=== PATIENT | female | born 1965 | race Two or more races ===

== ENCOUNTER 2023-12-16 22:37 | Inpatient (IN) | payer MEDICAID, OTHER ==
[~2023-12-16] VITALS: Ht 157.5 cm; Wt 78.5 kg
[2023-12-16] MEDS ORDERED: DILTIAZEM HCL 25 MG IV ONE ×2 (22:53→23:30)
[2023-12-16] MEDS: DILTIAZEM HCL 50 MG IV IV ONE (23:01)
[2023-12-16 23:19] LABS: BASOPHILS # (AUTO) 0.1 K/uL (0.0-0.2); BASOPHILS % (AUTO) 0.5 % (0.0-2.0); EOSINOPHILS # (AUTO) 0.2 K/uL (0.0-0.7); EOSINOPHILS % (AUTO) 1.9 % (0.0-6.0); HEMATOCRIT 38 % (33-45); HEMOGLOBIN 12.7 g/dL (11.5-14.8); LYMPHOCYTES # (AUTO) 4.2 K/uL (0.8-4.8); LYMPHOCYTES % (AUTO) 37.4 % (20.0-44.0); MEAN CORPUSCULAR HEMOGLOBIN 28 PG (26.0-33.0); MEAN CORPUSCULAR HGB CONC 33 g/dl (31.0-36.0); MEAN CORPUSCULAR VOLUME 86 fL (82-100); MONOCYTES # (AUTO) 0.8 K/uL (0.1-1.30); MONOCYTES % (AUTO) 7.1 % (2.0-12.0); NEUTROPHILS % (AUTO) 53.1 % (43.0-81.0); PLATELET COUNT (AUTO) 378 K/uL (150-450); RED BLOOD CELL COUNT(AUTO) 4.48 MIL/uL (4.0-5.2); WHITE BLOOD COUNT (AUTO) 11.3 K/uL (4.3-11.0)
[2023-12-16] MEDS ORDERED: DILTIAZEM HCL 50 MG IV ONE (23:30)
[2023-12-16 23:36] LABS: CALCIUM, SERUM 9.7 mg/dL (8.5-10.1); CREATININE 0.6 mg/dL (0.6-1.3); POTASSIUM 3.1 mmol/L (3.5-5.1)
[2023-12-16] MEDS: DILTIAZEM HCL IV 125 MG in IV NS 0.9% 100 ML IV PRN (23:40)
[2023-12-16 23:51] LABS: ALBUMIN 3.8 g/dL (3.4-5.0); BILIRUBIN,TOTAL 0.2 mg/dL (0.2-1.0); MAGNESIUM 2.2 mg/dL (1.8-2.4); TOTAL PROTEIN, SERUM 8.1 g/dL (6.4-8.2)
[2023-12-17] MEDS ORDERED: POTASSIUM CHLORIDE 20 MEQ TAB.PRT.SR PO ONE (00:15)
[2023-12-17] MEDS: POTASSIUM CHLORIDE 20 MEQ TAB.PRT.SR PO ONE ×2 (00:21→13:54)
[2023-12-17] MEDS ORDERED: AMIODARONE 150 MG/3 ML VIAL IV ONE (01:22)
[2023-12-17] MEDS: AMIODARONE 150 MG/3 ML VIAL IV ONE ×2 (01:30→02:00)
[2023-12-17] MEDS: AMIODARONE 450 MG in IV D5W 241 ML IV ONE (02:00)
[2023-12-17] MEDS ORDERED: OMEP20CA15 PO (05:21)
[2023-12-17] MEDS ORDERED: PANTOPRAZOLE 40 MG TABLET.DR PO ONE (05:27)
[2023-12-17 06:33] LABS: BASOPHILS % (AUTO) 0.4 % (0.0-2.0); EOSINOPHILS # (AUTO) 0.2 K/uL (0.0-0.7); EOSINOPHILS % (AUTO) 1.9 % (0.0-6.0); HEMATOCRIT 38 % (33-45); HEMOGLOBIN 12.6 g/dL (11.5-14.8); LYMPHOCYTES # (AUTO) 3.2 K/uL (0.8-4.8); LYMPHOCYTES % (AUTO) 36.9 % (20.0-44.0); MEAN CORPUSCULAR HEMOGLOBIN 29 PG (26.0-33.0); MEAN CORPUSCULAR HGB CONC 33 g/dl (31.0-36.0); MEAN CORPUSCULAR VOLUME 86 fL (82-100); MONOCYTES # (AUTO) 0.6 K/uL (0.1-1.30); MONOCYTES % (AUTO) 7.3 % (2.0-12.0); NEUTROPHILS # (AUTO) 4.7 K/uL (1.8-8.9); NEUTROPHILS % (AUTO) 53.5 % (43.0-81.0); PLATELET COUNT (AUTO) 365 K/uL (150-450); RED BLOOD CELL COUNT(AUTO) 4.42 MIL/uL (4.0-5.2); RED CELL DISTRIBUTION WIDTH 14.1 % (11.5-15.0); WHITE BLOOD COUNT (AUTO) 8.7 K/uL (4.3-11.0)
[2023-12-17 06:39] LABS: CREATININE 0.6 mg/dL (0.6-1.3); POTASSIUM 3.7 mmol/L (3.5-5.1)
[2023-12-17 06:55] LABS: THYROID STIMULATING HORMONE 1.49 uIU/mL (0.358-3.74)
[2023-12-17] MEDS: AMIODARONE 450 MG in IV D5W 241 ML IV PRN (08:28)
[2023-12-17] MEDS: PANTOPRAZOLE 40 MG TABLET.DR PO ONE (09:46)
[2023-12-17 10:00] VITALS: BP 121/66; TEMP 97.7; O2SAT 96
[2023-12-17 13:09] VITALS: BP 114/77; TEMP 98.4; O2SAT 94
[2023-12-17] MEDS: METOPROLOL TARTRATE 25 MG TABLET PO SCH (13:55)
[2023-12-17 16:00] VITALS: BP 129/79; TEMP 98.4; O2SAT 100
[2023-12-17 20:00] VITALS: BP 107/64; TEMP 97.7; O2SAT 100
[2023-12-18] VITALS: BP 109/62; TEMP 97.9; O2SAT 99
[2023-12-18 04:00] VITALS: BP 120/82; TEMP 97.9; O2SAT 99
[2023-12-18 09:20] VITALS: BP 110/62; TEMP 97.9; O2SAT 100
[2023-12-18] MEDS ORDERED: IV NS 0.9% 250 ML IV ONE (11:04)
[2023-12-18] MEDS ORDERED: IOHEXOL-350 100 ML VIAL IV ONE (11:04)
[2023-12-18] MEDS ORDERED: METOPROLOL TARTRATE INJ 5 MG/5 ML AMPUL ONE ×2 (11:04→11:29)
[2023-12-18] MEDS ORDERED: NITROGLYCERIN 0.4 MG/TAB BOTTLE ONE (11:04)
[2023-12-18] MEDS ORDERED: CT SWABBABLE VALVE TRANS SET 1 EA INFUS.SET MC ONE (11:04)
[2023-12-18] MEDS: METOPROLOL TARTRATE INJ 5 MG/5 ML AMPUL IVP PRN (11:20)
[2023-12-18] MEDS: NITROGLYCERIN 0.4 MG/TAB BOTTLE SL ONE (11:28)
[2023-12-18 12:00] VITALS: BP 105/74; TEMP 97.5; O2SAT 100
[2023-12-18 16:00] VITALS: BP 96/65; TEMP 97.5; O2SAT 100
[2023-12-18] MEDS ORDERED: METO25TA20 PO (16:35)
== END 2023-12-18 17:00 | disposition home or self-care (01) | DRG 201 ==
LOC: ER 22:39 → TRANSITION 12-17 06:05 → TELE1 12-17 06:39 → TELE-TD 12-17 09:18
PROVIDERS: ADMIT Internal Medicine; ATTEND Internal Medicine
DX: I48.0 Paroxysmal atrial fibrillation (principal); K21.9 Gastro-esophageal reflux disease without esophagitis; Z79.899 Other long term (current) drug therapy; Z88.0 Allergy status to penicillin; R94.31 Abnormal electrocardiogram [ECG] [EKG]
CPT/HCPCS: 36415; 71045-TC; 75574; 80048-TC; 80053-TC; 80061-TC; 83735-TC; 83880; 84443-TC; 84484-TC; 85025-TC; 93307-TC; A4223; G0378; J0282; J3490; J7030; J7050; J7060; Q9967